=== PATIENT | male | born 1935 | race Native Hawaiian/Other Pacific Islander ===

== ENCOUNTER 2016-10-11 13:55 | Outpatient (CLI) | payer OTHER ==
[2016-10-11 14:21] LABS: PLATELET COUNT 167 K/uL (142-355)
[2016-10-11 14:31] LABS: POTASSIUM 4.2 mmol/L (3.6-5.2)
== END 2016-10-11 19:17 | disposition home or self-care (01) ==
LOC: LAB 13:55
PROVIDERS: Internal Medicine
DX: I10 Essential (primary) hypertension (principal); J44.9 Chronic obstructive pulmonary disease, unspecified; F02.80 Dementia in other diseases classified elsewhere, unspecified severity, without behavioral disturbance, psychotic disturbance, mood disturbance, and anxiety; Z79.01 Long term (current) use of anticoagulants; I25.10 Atherosclerotic heart disease of native coronary artery without angina pectoris; I73.89 Other specified peripheral vascular diseases; Z85.46 Personal history of malignant neoplasm of prostate; Z51.81 Encounter for therapeutic drug level monitoring
CPT/HCPCS: 80053; 80061; 84436; 84443; 85027

== ENCOUNTER 2017-01-31 13:48 | Outpatient (CLI) | payer OTHER | END 2017-01-31 19:22 | disposition home or self-care (01) | LOC: LAB 13:48 | DX: Z79.01 Long term (current) use of anticoagulants (principal); Z51.81 Encounter for therapeutic drug level monitoring; I25.10 Atherosclerotic heart disease of native coronary artery without angina pectoris | CPT/HCPCS: 85610 ==